=== PATIENT | female | born 1950 | race Caucasian/White ===

== ENCOUNTER → 2016-10-07 | Outpatient (CLI) | payer MEDICARE ==
--- NOTE | 2016-10-09 09:38 | MM ---
Reason for exam: screening (asymptomatic). Last mammogram was performed 1 year ago. History: Patient is postmenopausal and has history of other cancer at age 33. Family history of breast cancer in sister at age 54 and breast cancer in sister at age 68. Benign excisional biopsy of the left breast. Physical Findings: A clinical breast exam by your physician is recommended on an annual basis and results should be correlated with mammographic findings. MG 3D Screening Mammo W/Cad Bilateral CC and MLO view(s) were taken. Prior study comparison: October 06, 2015, bilateral MG 3d screening mammo w/cad. September 28, 2014, bilateral MG screening mammo w CAD. The breast tissue is heterogeneously dense. This may lower the sensitivity of mammography. No significant changes when compared with prior studies. ASSESSMENT: Benign, BI-RAD 2 RECOMMENDATION: Routine screening mammogram of both breasts in 1 year.
== END | disposition home or self-care (01) ==
LOC: RADMAMWWP 08:57
PROVIDERS: ATTEND Obstetrics & Gynecology
DX: Z12.31 Encounter for screening mammogram for malignant neoplasm of breast (principal)
CPT/HCPCS: 77063; G0202

== ENCOUNTER → 2017-02-24 | Outpatient (CLI) | payer MEDICARE ==
[2017-02-24 10:01] LABS: Basophils # (A) 0.1 k/uL (0-0.2); Basophils % (A) 1 %; CH 28.5; CHCM 32.7; Eosinophils # (A) 0.1 k/uL (0-0.7); Eosinophils % (A) 2 %; HCT 39.2 % (34.0-46.0); HDW 2.26; Luc # (Auto) 0.17; Luc % (Auto) 3; Lymphocytes # (A) 1.9 k/uL (1.0-4.8); Lymphocytes % (A) 38 %; MCHC 33.2 g/dL (31.0-37.0); MCV 87.4 fL (80.0-100.0); Mean Platelet Volume 6.5; Monocytes # (A) 0.2 k/uL (0-1.0); Monocytes % (A) 5 %; Neutrophils # (A) 2.6 k/uL (1.3-7.7); Neutrophils % (A) 52 %; RBC 4.48 m/uL (3.80-5.40); RDW 12.3 % (11.5-15.5); WBC 5.1 k/uL (3.8-10.6); WBC (Perox) 5.31
[2017-02-24 10:25] LABS: ALT 25 U/L (9-52); AST 23 U/L (14-36); Alkaline Phosphatase 85 U/L (38-126); Anion Gap 9 mmol/L; Blood Urea Nitrogen 14 mg/dL (7-17); Calcium 9.2 mg/dL (8.4-10.2); Carbon Dioxide 28 mmol/L (22-30); Chloride 106 mmol/L (98-107); Cholesterol 176 mg/dL (<200); Glucose 90 mg/dL (74-99); HDL Cholesterol 55 mg/dL (40-60); Non-African American GFR(MDRD) >60 (>60 ml/min/1.73 sqM); Sodium 143 mmol/L (137-145); Total Bilirubin 0.6 mg/dL (0.2-1.3); Total Protein 7.2 g/dL (6.3-8.2); Triglycerides 134 mg/dL (<150)
== END | disposition home or self-care (01) ==
LOC: LABWHC1 09:24
PROVIDERS: ATTEND Internal Medicine Geriatric Medicine
DX: E78.00 Pure hypercholesterolemia, unspecified (principal); D50.9 Iron deficiency anemia, unspecified; R00.1 Bradycardia, unspecified
CPT/HCPCS: 36415; 80053; 80061; 84439; 84443; 85025

== ENCOUNTER → 2017-09-23 | Outpatient (CLI) | payer MEDICARE ==
--- NOTE | 2017-09-24 09:35 | MM ---
Reason for exam: screening (asymptomatic). Last mammogram was performed 1 year ago. History: Patient is postmenopausal and has history of other cancer at age 33. Family history of breast cancer in sister at age 54 and breast cancer in sister at age 68. Benign excisional biopsy of the left breast. Physical Findings: A clinical breast exam by your physician is recommended on an annual basis and results should be correlated with mammographic findings. MG 3D Screening Mammo W/Cad Bilateral CC and MLO view(s) were taken. Prior study comparison: October 07, 2016, bilateral MG 3d screening mammo w/cad. October 06, 2015, bilateral MG 3d screening mammo w/cad. The breast tissue is heterogeneously dense. This may lower the sensitivity of mammography. No significant changes when compared with prior studies. ASSESSMENT: Benign, BI-RAD 2 RECOMMENDATION: Routine screening mammogram of both breasts in 1 year.
== END | disposition home or self-care (01) ==
LOC: RADMAMWWP 09:04
PROVIDERS: ATTEND Obstetrics & Gynecology
DX: Z12.31 Encounter for screening mammogram for malignant neoplasm of breast (principal); Z80.3 Family history of malignant neoplasm of breast
CPT/HCPCS: 77063; 77067

== ENCOUNTER → 2017-12-08 | Outpatient (CLI) | payer MEDICARE ==
--- NOTE | 2017-12-08 20:45 | ECHOF ---
Referral Reason:R01.1 cardiac murmur MEASUREMENTS -------- HEIGHT: 170.2 cm WEIGHT: 79.4 kg BP: 172/81 RVIDd: 2.6 cm (< 3.3) IVSd: 1.0 cm (0.6 - 1.1) LVIDd: 4.6 cm (3.9 - 5.3) LVPWd: 1.1 cm (0.6 - 1.1) IVSs: 1.6 cm LVIDs: 2.8 cm LVPWs: 1.6 cm LAESV Index (A-L): 19.26 ml/m Ao Diam: 3.1 cm (2.0 - 3.7) AV Cusp: 0.9 cm (1.5 - 2.6) LA Diam: 3.7 cm (2.7 - 3.8) MV EXCURSION: 12.039 mm (> 18.000) MV EF SLOPE: 66 mm/s (70 - 150) EPSS: 0.5 cm MV E Yoel: 0.76 m/s MV DecT: 288 ms MV A Yoel: 0.86 m/s MV E/A Ratio: 0.88 AV maxP.27 mmHg AV meanP.46 mmHg RAP: 5.00 mmHg RVSP: 19.02 mmHg FINDINGS -------- Sinus rhythm. This was a technically good study. The left ventricular size is normal. Left ventricular wall thickness is normal. Overall left vent ricular systolic function is normal with, an EF between 55 - 60 %. The right ventricle is normal in size and function. Normal LA size by volume 22+/-6 ml/m2. The right atrium is normal in size. Aortic valve is trileaflet and is mildly thickened. Trace amount of aortic regurgitation. There is mild aortic stenosis present. Peak/mean gradient across the Aortic Valve is 14.27mmHg / 8.46mmHg . The mitral valve leaflets are mildly thickened. There is trace to mild mitral regurgitation. Trace tricuspid regurgitation present. Right ventricular systolic pressure is normal at < 35 mmHg. There is no evidence of pulmonary hypertension. The pulmonic valve was not well visualized. The aortic root size is normal. Normal inferior vena cava with normal inspiratory collapse consistent with estimated right atrial pre ssure of 5 mmHg. The pericardium is normal. There is no pericardial effusion. CONCLUSIONS -------- 1. Sinus rhythm. 2. This was a technically good study. 3. The left ventricular size is normal. 4. Left ventricular wall thickness is normal. 5. Overall left ventricular systolic function is normal with, an EF between 55 - 60 %. 6. Normal LA size by volume 22+/-6 ml/m2. 7. Aortic valve is trileaflet and is mildly thickened. 8. Trace amount of aortic regurgitation. 9. There is mild aortic stenosis present. 10. Peak/mean gradient across the Aortic Valve is 14.27mmHg / 8.46mmHg. 11. The mitral valve leaflets are mildly thickened. 12. There is trace to mild mitral regurgitation. 13. Trace tricuspid regurgitation present. 14. Right ventricular systolic pressure is normal at < 35 mmHg. 15. There is no evidence of pulmonary hypertension. 16. The pulmonic valve was not well visualized. 17. The aortic root size is normal. 18. There is no pericardial effusion. SHAPER SETTER: Carlos Nichols RDCS
== END | disposition home or self-care (01) ==
LOC: RADECHMAIN 14:40
PROVIDERS: ATTEND Internal Medicine Geriatric Medicine
DX: I35.8 Other nonrheumatic aortic valve disorders (principal); I35.0 Nonrheumatic aortic (valve) stenosis
CPT/HCPCS: 93306

== ENCOUNTER → 2018-10-09 | Outpatient (CLI) | payer MEDICARE ==
--- NOTE | 2018-10-09 17:03 | BD ---
EXAMINATION TYPE: Axial Bone Density DATE OF EXAM: 10/09/2018 COMPARISON: NONE CLINICAL HISTORY: Height: 66.5 Weight: 172.1 FRAX RISK QUESTIONS: Alcohol (3 or more units per day): no Family History (Parent hip fracture): no Glucocorticoids (More than 3mos): no (Ex: prednisone, prednisolone, methylprednisolone, dexamethasone, and hydrocortisone). History of Fracture in Adulthood: yes Secondary Osteoporosis: 1. Type 1 Diabetes: no 2. Hyperthyroidism: no 3. Menopause before 45: no 4. Malnutrition: no 5. Chronic liver disease: no Rheumatoid Arthritis: no Current Tobacco Use: no RISK FACTORS HISTORY OF: History of Wrist Fracture: left wrist When: 2000 Family History of Osteoporosis: no Active: yes Diet low in dairy products/other sources of calcium: no Postmenopausal woman: age 57 Lost more than 2 inches in height since high school: no MEDICATIONS: cholesterol med Additional History: EXAM MEASUREMENTS: Bone mineral densitometry was performed using the [employer]. Bone mineral density as measured about the Lumbar spine is: ----- L1-L4(G/cm2): 1.336 T Score Values are as follows: ----- L2: 1.2 ----- L3: 2.2 ----- L4: 1.6 ----- L1-L4: 1.3 Bone mineral density has: increased 6.6 % since study of: 09.28.2014 Bone mineral density about the R hip (g/cm2): 1.046 Bone mineral density about the L hip (g/cm2): 1.001 T Score values are as follows: -----R Neck: 0.1 -----L Neck: -0.3 -----R Total: 0.2 -----L Total: 0.2 Bone mineral density has: decreased -3.6 % since study of: 09.28.2014 IMPRESSION: Normal (Values between +1 and -1 indicate normal bone mass). Consider repeating this study in 5 year s or sooner if there is some new clinical indication. NOTE: T-SCORE=SD OF THE YOUNG ADULT MEAN.
--- NOTE | 2018-10-15 14:03 | MM ---
Reason for exam: screening (asymptomatic). Last mammogram was performed 1 year and 1 month ago. History: Patient is postmenopausal and has history of other cancer at age 33. Family history of breast cancer in 2 sisters at age 54 and breast cancer in sister at age 68. Benign excisional biopsy of the left breast. MG 3D Screening Mammo W/Cad Bilateral CC and MLO view(s) were taken. Prior study comparison: September 23, 2017, bilateral MG 3d screening mammo w/cad. October 07, 2016, bilateral MG 3d screening mammo w/cad. No significant changes when compared with prior studies. ASSESSMENT: Negative, BI-RAD 1 RECOMMENDATION: Routine screening mammogram of both breasts in 1 year.
== END | disposition home or self-care (01) ==
LOC: RADMAMWWP 15:26
PROVIDERS: ATTEND Obstetrics & Gynecology
DX: Z12.31 Encounter for screening mammogram for malignant neoplasm of breast (principal); Z13.820 Encounter for screening for osteoporosis; Z78.0 Asymptomatic menopausal state
CPT/HCPCS: 77063; 77067; 77080

== ENCOUNTER → 2019-10-14 | Outpatient (CLI) | payer MEDICARE ==
--- NOTE | 2019-10-15 10:36 | MM ---
Reason for exam: screening (asymptomatic). Last mammogram was performed 1 year ago. History: Patient is postmenopausal and has history of other cancer at age 33. Family history of breast cancer in 2 sisters at age 54 and breast cancer in sister at age 68. Benign excisional biopsy of the left breast. Physical Findings: A clinical breast exam by your physician is recommended on an annual basis and results should be correlated with mammographic findings. MG 3D Screening Mammo W/Cad Bilateral CC and MLO view(s) were taken. Prior study comparison: October 09, 2018, bilateral MG 3d screening mammo w/cad. September 23, 2017, bilateral MG 3d screening mammo w/cad. The breast tissue is heterogeneously dense. This may lower the sensitivity of mammography. There is no discrete abnormality. ASSESSMENT: Negative, BI-RAD 1 RECOMMENDATION: Routine screening mammogram of both breasts in 1 year.
== END | disposition home or self-care (01) ==
LOC: RADMAMWWP 10:53
PROVIDERS: ATTEND Obstetrics & Gynecology
DX: Z12.31 Encounter for screening mammogram for malignant neoplasm of breast (principal)
CPT/HCPCS: 77063; 77067

== ENCOUNTER → 2019-10-15 | Outpatient (CLI) | payer MEDICARE ==
[2019-10-15 11:05] LABS: Basophils # (A) 0.1 k/uL (0-0.2); Basophils % (A) 1 %; Eosinophils # (A) 0.1 k/uL (0-0.7); Eosinophils % (A) 2 %; HCT 37.4 % (34.0-46.0); HGB 12.3 gm/dL (11.4-16.0); Lymphocytes # (A) 1.5 k/uL (1.0-4.8); Lymphocytes % (A) 34 %; MCH 28.7 pg (25.0-35.0); MCHC 32.7 g/dL (31.0-37.0); MCV 87.8 fL (80.0-100.0); Mean Platelet Volume 7.1; Monocytes # (A) 0.2 k/uL (0-1.0); Monocytes % (A) 5 %; Neutrophils # (A) 2.4 k/uL (1.3-7.7); Neutrophils % (A) 54 %; Platelet Count 241 k/uL (150-450); RBC 4.27 m/uL (3.80-5.40); RDW 12.3 % (11.5-15.5); WBC 4.4 k/uL (3.8-10.6)
[2019-10-15 18:01] LABS: Albumin 4.3 g/dL (3.80-4.90); Albumin/Globulin Ratio 2.26 (1.60-3.17); Anion Gap 7.9 mmol/L (4.00-12.00); BUN/Creat Ratio 16.25 Ratio (12.00-20.00); Calcium 9.2 mg/dL (8.7-10.3); Carbon Dioxide 29.1 mmol/L (21.6-31.8); Chol/HDL Ratio 2.93; Globulin 1.9 g/dL (1.6-3.3); Non-African American GFR(CKD) 74.2 (60.0-200.0); Potassium 3.9 mmol/L (3.5-5.5); Total Bilirubin 0.4 mg/dL (0.2-1.2); Total Protein 6.2 g/dL (6.2-8.2)
== END ==
LOC: LABWHC1 09:36
PROVIDERS: ATTEND Nurse Practitioner Family
DX: D50.9 Iron deficiency anemia, unspecified (principal); E78.2 Mixed hyperlipidemia; R79.9 Abnormal finding of blood chemistry, unspecified
CPT/HCPCS: 36415; 80053; 80061; 83036; 84443; 85025

== ENCOUNTER → 2020-10-16 | Outpatient (CLI) | payer MEDICARE ==
--- NOTE | 2020-10-17 09:53 | MM ---
Reason for exam: screening (asymptomatic). Last mammogram was performed 1 year ago. History: Patient is postmenopausal and has history of other cancer at age 33. Family history of breast cancer in 2 sisters at age 54 and breast cancer in sister at age 68. Benign excisional biopsy of the left breast. Physical Findings: A clinical breast exam by your physician is recommended on an annual basis and results should be correlated with mammographic findings. MG 3D Screening Mammo W/Cad Bilateral CC and MLO view(s) were taken. Prior study comparison: October 14, 2019, bilateral MG 3d screening mammo w/cad. October 09, 2018, bilateral MG 3d screening mammo w/cad. The breast tissue is heterogeneously dense. This may lower the sensitivity of mammography. There is no discrete abnormality. No significant changes when compared with prior studies. ASSESSMENT: Negative, BI-RAD 1 RECOMMENDATION: Routine screening mammogram of both breasts in 1 year.
== END | disposition home or self-care (01) ==
LOC: RADMAMWWP 10:58
PROVIDERS: ATTEND Obstetrics & Gynecology
DX: Z12.31 Encounter for screening mammogram for malignant neoplasm of breast (principal); Z80.3 Family history of malignant neoplasm of breast
CPT/HCPCS: 77063; 77067

== ENCOUNTER → 2022-02-25 | Outpatient (CLI) | payer MEDICARE ==
--- NOTE | 2022-02-27 07:43 | MM ---
Reason for Exam: Screening (asymptomatic). Last mammogram was performed 1 year(s) and 5 month(s) ago. Patient History: Menarche at age 11. First Full-Term at age 27. Postmenopausal. Other cancer, age 33. Benign Excisional Biopsy on the left side. Sister had breast cancer, age 54. Sister had breast cancer, age 68. Sister had breast cancer, age 54. Sister tested for BRCA1 outcome was negative. Risk Values: Teri 5 year model risk: 7.2%. NCI Lifetime model risk: 15.8%. Prior Study Comparison: 10/09/2018 Bilateral Screening Mammogram, [facility]. 10/14/2019 Bilateral Screening Mammogram, [facility]. 10/16/2020 Bilateral Screening Mammogram, [facility]. Tissue Density: The breast tissue is extremely dense which could obscure a lesion on mammography. Findings: Analyzed By CAD. There is no suspicious group of microcalcifications or new suspicious mass in either breast. Overall Assessment: Negative, BI-RAD 1 Management: Screening Mammogram of both breasts in 1 year. A clinical breast exam by your physician is recommended on an annual basis and results should be correlated with mammographic findings. Electronically signed and approved by: Fede Garcia M.D. Radiologis
== END | disposition home or self-care (01) ==
LOC: RADMAMWWP 09:42
PROVIDERS: ATTEND Obstetrics & Gynecology
DX: Z12.31 Encounter for screening mammogram for malignant neoplasm of breast (principal); Z78.0 Asymptomatic menopausal state; Z80.3 Family history of malignant neoplasm of breast
CPT/HCPCS: 77063; 77067

== ENCOUNTER → 2023-02-26 | Outpatient (CLI) | payer MEDICARE ==
--- NOTE | 2023-02-26 14:28 | MM ---
Reason for Exam: Screening (asymptomatic). Last screening mammogram was performed 12 month(s) ago. Patient History: Menarche at age 11. First Full-Term at age 27. Postmenopausal. Patient has history of breast feeding. Benign Excisional Biopsy on the left side. Sister had breast cancer, age 54. Sister had breast cancer, age 68. Sister had breast cancer, age 54. Sister tested for BRCA1 outcome was negative. Risk Values: Teri 5 year model risk: 7.2%. NCI Lifetime model risk: 14.8%. Prior Study Comparison: 10/14/2019 Bilateral Screening Mammogram, [facility]. 10/16/2020 Bilateral Screening Mammogram, [facility]. 02/25/2022 Bilateral MG 3D screening mammo w/cad, [facility]. Tissue Density: The breast tissue is heterogeneously dense. This may lower the sensitivity of mammography. Findings: Analyzed By CAD. There is no suspicious group of microcalcifications or new suspicious mass in either breast. Overall Assessment: Negative, BI-RAD 1 Management: Screening Mammogram of both breasts in 1 year. A clinical breast exam by your physician is recommended on an annual basis and results should be correlated with mammographic findings. Electronically signed and approved by: Brayden Ayala D.O.
== END | disposition home or self-care (01) ==
LOC: RADMAMWWP 07:43
PROVIDERS: ATTEND Obstetrics & Gynecology
DX: Z12.31 Encounter for screening mammogram for malignant neoplasm of breast (principal); Z78.0 Asymptomatic menopausal state; Z80.3 Family history of malignant neoplasm of breast
CPT/HCPCS: 77063; 77067

== ENCOUNTER → 2024-03-03 | Outpatient (CLI) | payer MEDICARE ==
--- NOTE | 2024-03-03 11:31 | BD ---
EXAMINATION TYPE: Axial Bone Density DATE OF EXAM: 03/03/2024 CLINICAL HISTORY: 74 years old Female. ICD-10 CODE: Z12.31 Screening mammogram; M81.0 Osteoporosis Height: 65 Weight: 169.4 FRAX RISK QUESTIONS: Alcohol (3 or more units per day): no Family History (Parent hip fracture): no Glucocorticoids (More than 3mos): no (Ex: prednisone, prednisolone, methylprednisolone, dexamethasone, and hydrocortisone). History of Fracture in Adulthood: yes Lt Wrist Secondary Osteoporosis: 1. Type 1 Diabetes: no 2. Hyperthyroidism: no 3. Menopause before 45: no 4. Malnutrition: no 5. Chronic liver disease: no Rheumatoid Arthritis: no Current Tobacco Use: no RISK FACTORS HISTORY OF: Hip Fracture (Right/Left): no Spine Fracture: no History of Wrist Fracture: Lt Wrist When: 1999 Surgery to Spine/Hip(right/left)/Wrist (right/left): no MEDICATIONS: Thyroid Medications: no Osteoporosis Medications: no EXAM MEASUREMENTS: Bone mineral densitometry was performed using the [employer] System. Bone mineral density as measured about the Lumbar spine is: ----- L1-L4(G/cm2): 1.396 T Score Values are as follows: ----- L1: 1.1 ----- L2: 1.0 ----- L3: 2.3 ----- L4: 2.7 ----- L1-L4: 1.8 Z Score Values are as follows: ----- L1: 2.5 ----- L2: 2.4 ----- L3: 3.7 ----- L4: 4.1 ----- L1-L4: 3.2 Bone mineral density has: increased 7.3 % since study of: 09/28/2014 Bone mineral density about the R hip (g/cm2): 0.987 Bone mineral density about the L hip (g/cm2): 1.018 T Score values are as follows: -----R Neck: -0.4 -----L Neck: -0.5 -----R Total: -0.2 -----L Total: 0.1 Z Score values are as follows: -----R Neck: 1.3 -----L Neck: 1.2 -----R Total: 1.3 -----L Total: 1.6 Bone mineral density has: decreased -6.0 % since study of: 09/28/2014 FRAX%s: The graph provided illustrates a 13.4% chance for a major osteoporotic fx and a 1.5% chance f or the hips probability for fx in 10 years time. IMPRESSION: Normal (Values between +1 and -1 indicate normal bone mass). Consider repeating this study in 5 year s or sooner if there is some new clinical indication. NOTE: T-SCORE=SD OF THE YOUNG ADULT MEAN.
--- NOTE | 2024-03-04 09:05 | MM ---
Reason for Exam: Screening (asymptomatic). Last screening mammogram was performed 12 month(s) ago. Patient History: Menarche at age 11. First Full-Term at age 27. Postmenopausal. Patient has history of breast feeding. Benign Excisional Biopsy on the left side. Sister had breast cancer, age 54. Sister had breast cancer, age 68. Sister had breast cancer, age 54. Sister tested for BRCA1 outcome was negative. Risk Values: Teri 5 year model risk: 7.1%. NCI Lifetime model risk: 14.0%. Prior Study Comparison: 10/16/2020 Bilateral Screening Mammogram, [facility]. 02/25/2022 Bilateral MG 3D screening mammo w/cad, [facility]. 02/26/2023 Bilateral MG 3D screening mammo w/cad, [facility]. Tissue Density: The breasts are heterogeneously dense, which may obscure small masses. Findings: Analyzed By CAD. There is no suspicious group of microcalcifications or new suspicious mass in either breast. Benign-appearing calcification. Overall Assessment: Benign, BI-RAD 2 Management: Screening Mammogram of both breasts in 1 year. . Patient should continue monthly self-breast exams. A clinical breast exam by your physician is recommended on an annual basis. This exam should not preclude additional follow-up of suspicious palpable abnormalities. Note on Teri scores and lifetime risk: 1. A Teri score greater than 3% is considered moderate risk. If this is the case, consider specialist referral to assess eligibility for a risk reducing agent. 2. If overall lifetime risk for the development of breast cancer is 20% or higher, the patient may qualify for future screening with alternating mammogram and breast MRI. Electronically signed and approved by: Tim Mallory M.D. Radiologis
== END | disposition home or self-care (01) ==
LOC: RADMAMWWP 10:31
PROVIDERS: ATTEND Internal Medicine Geriatric Medicine
DX: Z12.31 Encounter for screening mammogram for malignant neoplasm of breast (principal); M81.0 Age-related osteoporosis without current pathological fracture; Z80.3 Family history of malignant neoplasm of breast; Z78.0 Asymptomatic menopausal state
CPT/HCPCS: 77063; 77067; 77080

== ENCOUNTER → 2024-12-02 | Outpatient (CLI) | payer MEDICARE ==
[2024-12-02 14:50] LABS: HCT 37.4 % (37.2-46.3); HGB 12.1 g/dL (12.0-15.0); MCH 28.7 pg (27.0-32.0); MCHC 32.4 g/dL (32.0-37.0); MCV 88.8 FL (80.0-97.0); Mean Platelet Volume 9.8 FL (9.5-12.2); NRBC Per 100 WBC 0 X 10*3/uL (0.00-0.01); Platelet Count 340 X 10*3/uL (140-440); RBC 4.21 X 10*6/uL (4.10-5.20); RDW 12.6 % (11.5-14.5); WBC 6.18 X 10*3/uL (4.50-10.00)
[2024-12-02 15:01] LABS: ALT 17 U/L (8-44); AST 22 U/L (13-35); Albumin 4.2 g/dL (3.8-4.9); Alkaline Phosphatase 89 U/L (41-126); BUN/Creat Ratio 19.75 Ratio (12.00-20.00); Blood Urea Nitrogen 15.8 mg/dL (9.0-27.0); Calcium 9.3 mg/dL (8.7-10.3); Carbon Dioxide 25.7 mmol/L (21.6-31.8); Chloride 105 mmol/L (96-109); Chol/HDL Ratio 2.44 Ratio; Glucose 92 mg/dL (70-110); LDL Cholesterol,Calculated 85.4 mg/dL (0.0-131.0); Potassium 3.8 mmol/L (3.5-5.5); Sodium 144 mmol/L (135-145); Total Bilirubin 0.3 mg/dL (0.3-1.2); Total Protein 6.2 g/dL (6.2-8.2); VLDL Calculation 15.64 mg/dL (5.00-40.00)
[2024-12-02 15:48] LABS: NT-Pro-B-Type Natriuretic Pept 326 pg/mL (0-450)
== END | disposition home or self-care (01) ==
LOC: LABWHC1 08:27
PROVIDERS: ATTEND Student in an Organized Health Care Education/Training Program
DX: I50.9 Heart failure, unspecified (principal); E11.9 Type 2 diabetes mellitus without complications; E78.5 Hyperlipidemia, unspecified; D72.9 Disorder of white blood cells, unspecified; R79.89 Other specified abnormal findings of blood chemistry
CPT/HCPCS: 36415; 80053; 80061; 83036; 83880; 85027

== ENCOUNTER → 2025-03-18 | Outpatient (CLI) | payer MEDICARE ==
--- NOTE | 2025-03-18 09:32 | MM ---
Reason for Exam: Screening (asymptomatic). Last screening mammogram was performed 12 month(s) ago. Patient History: Menarche at age 11. First Full-Term at age 27. Postmenopausal. Patient has history of breast feeding. Benign Excisional Biopsy on the left side. Sister had breast cancer, age 54. Sister had breast cancer, age 68. Sister had breast cancer, age 54. Sister tested for BRCA1 outcome was negative. Risk Values: Teri 5 year model risk: 7.1%. NCI Lifetime model risk: 13.1%. Prior Study Comparison: 02/25/2022 Bilateral MG 3D screening mammo w/cad, [facility]. 02/26/2023 Bilateral MG 3D screening mammo w/cad, [facility]. 03/03/2024 Bilateral MG 3D screening mammo w/cad, [facility]. Tissue Density: The breasts are heterogeneously dense, which may obscure small masses. Findings: Analyzed By CAD. Right breast: There is no suspicious group of microcalcifications or new suspicious mass. Left breast: There is no suspicious group of microcalcifications or new suspicious mass. Overall Assessment: Negative, BI-RAD 1 Management: Screening Mammogram of both breasts in [address] [facility] will attempt to contact patient to return for supplemental views and ultrasound if indicated. Patient should continue monthly self-breast exams. A clinical breast exam by your physician is recommended on an annual basis. This exam should not preclude additional follow-up of suspicious palpable abnormalities. Note on Teri scores and lifetime risk: 1. A Teri score greater than 3% is considered moderate risk. If this is the case, consider specialist referral to assess eligibility for a risk reducing agent. 2. If overall lifetime risk for the development of breast cancer is 20% or higher, the patient may qualify for future screening with alternating mammogram and breast MRI. [facility], , 03/18/2025 9:30 AM. Electronically signed and approved by: Mandeep Thakur DO
== END | disposition home or self-care (01) ==
LOC: RADMAMWWP 08:29
PROVIDERS: ATTEND Internal Medicine Geriatric Medicine
DX: Z12.31 Encounter for screening mammogram for malignant neoplasm of breast (principal); R92.333 Mammographic heterogeneous density, bilateral breasts; Z78.0 Asymptomatic menopausal state; Z80.3 Family history of malignant neoplasm of breast
CPT/HCPCS: 77063; 77067